=== PATIENT | female | born 1945 | race African-American/Black ===

== ENCOUNTER 2018-02-16 23:10 | Emergency (ER) | payer MEDICARE, MEDICAID | END 2018-02-16 23:22 | disposition left against medical advice (07) | LOC: ER 23:10 | DX: Z53.21 Procedure and treatment not carried out due to patient leaving prior to being seen by health care provider (principal) ==

== ENCOUNTER 2018-02-17 03:13 | Emergency (ER) | payer MEDICARE, MEDICAID ==
[~2018-02-17] VITALS: Ht 160 cm; Wt 67.0 kg
[2018-02-17 03:39] VITALS: BP 113/79
[2018-02-17] MEDS ORDERED: KETOROLAC 60MG/2ML VIAL IM ONE (08:00)
[2018-02-17] MEDS ORDERED: CEFTRIAXONE SODIUM 1 G/VIAL IM ONE (08:15)
[2018-02-17] MEDS ORDERED: LIDOCAINE HCL 1% 20ML VIAL (Pyxis) INJ INFIL ONE ×2 (08:15→12:45)
[2018-02-17] MEDS ORDERED: SULFAMETHOXAZOLE/TRIMETHOPRIM 800/160MG TABLET PO ONE (08:15)
[2018-02-17] MEDS ORDERED: LIDOCAINE HCL/PF 1% 10 MG/ML 5ML VIAL IJ ONE (12:00)
[2018-02-17] MEDS ORDERED: LIDOCAINE HCL/PF 1% 10 MG/ML 5ML VIAL IJ NR (12:45)
== END 2018-02-17 16:20 | disposition home or self-care (01) ==
LOC: ER 03:35
DX: L02.31 Cutaneous abscess of buttock (principal); H92.02 Otalgia, left ear; M54.5 Low back pain; Z59.0 Homelessness
CPT/HCPCS: 10060; 96372; 99284; J0696; J1885; J3490

== ENCOUNTER 2020-07-29 17:46 | Emergency (ER) | payer MEDICARE, MEDICAID ==
[~2020-07-29] VITALS: Ht 154.9 cm; Wt 55.0 kg
[2020-07-29] MEDS ORDERED: VANCOMYCIN 1 G PREMIX 200 ML IV ONE (18:45)
[2020-07-29] MEDS ORDERED: PIPERACILLIN/TAZ 3.375G PREMIX 50 ML IV ONE (18:45)
[2020-07-29 19:03] LABS: CLARITY URINE CLOUDY (CLEAR); COLOR URINE YELLOW (YELLOW); KETONES URINE TRACE (NEGATIVE); LEUKOCYTE ESTERASE URINE 2+ (NEGATIVE); NITRITE URINE NEGATIVE (NEGATIVE); OCCULT BLOOD URINE NEGATIVE (NEGATIVE); PROTEIN URINE NEGATIVE (NEGATIVE); SPECIFIC GRAVITY URINE 1.026 (1.005-1.030)
[2020-07-29 19:27] LABS: BASOPHILS % 0.6 % (0.0-2.0); EOSINOPHILS % 3.9 % (0.0-5.0); HEMATOCRIT. 29.2 % (36.0-48.0); HEMOGLOBIN. 9.3 g/dL (12.0-16.0); LYMPHOCYTES % 10.1 % (20.0-50.0); MEAN CORPUSCULAR HEMOGLOBIN 25.7 pg (28.0-32.0); MEAN PLATELET VOLUME 6.6 fl (7.4-10.4); MONOCYTES % 8.5 % (2.0-8.0); NEUTROPHILS % 76.9 % (40.0-76.0); PLATELET 420 x1000/uL (130-400); RED CELL DISTRIBUTION WIDTH 16.6 % (11.6-14.6)
[2020-07-29 19:37] LABS: CHLORIDE 102 mEq/L (98-107); PROTHROMBIN TIME 10.7 sec (9.6-11.0)
[2020-07-29] MEDS ORDERED: IOHEXOL-300 100 ML BOTTLE ONE (22:25)
[2020-07-30 03:00] VITALS: BP 98/63
== END 2020-07-30 04:46 | disposition left against medical advice (07) ==
LOC: ER 17:46 → EDBEDREQ 21:29 → EDBEDREQTM 21:29 → ER 07-30 04:46 → CANBEDREQ 07-30 08:53
DX: L03.317 Cellulitis of buttock (principal); N39.0 Urinary tract infection, site not specified; D64.9 Anemia, unspecified
CPT/HCPCS: 36415; 71045; 80053; 81003; 83605; 84145; 84484; 85025; 85610; 87040; 87086; 93005; 96365; 96366; 96367; 99285; J2543; J3370; Q9967

== ENCOUNTER 2022-08-25 18:10 | Inpatient (IN) | payer MEDICARE, MEDICAID ==
[~2022-08-25] VITALS: Ht 157.5 cm; Wt 47.6 kg
[~2022-08-25 18:10] MED LIST: BISA10SU62 RC; ESCI10TA PO; HYDR-4001 MT; MOM MT; TOPUD PO
[2022-08-25 22:31] LABS: CLARITY URINE CLEAR (CLEAR); COLOR URINE YELLOW (YELLOW); KETONES URINE NEGATIVE (NEGATIVE); LEUKOCYTE ESTERASE URINE 3+ (NEGATIVE); NITRITE URINE NEGATIVE (NEGATIVE); OCCULT BLOOD URINE NEGATIVE (NEGATIVE); PH URINE 6.5 (4.5-8.0); PROTEIN URINE NEGATIVE (NEGATIVE); SPECIFIC GRAVITY URINE 1.015 (1.005-1.030); UROBILINOGEN URINE 0.2 E.U./dL (0.2-1.0)
[2022-08-25] MEDS ORDERED: SODIUM CHLORIDE 0.9% 1,000 ML IV ONE (23:45)
[2022-08-26 00:17] LABS: BASOPHILS % 0.3 % (0.0-2.0); EOSINOPHILS % 3.3 % (0.0-5.0); HEMATOCRIT. 30.2 % (36.0-48.0); HEMOGLOBIN. 9.2 g/dL (12.0-16.0); LYMPHOCYTES % 10.5 % (20.0-50.0); MEAN CORPUSCULAR HEMOGLOBIN 23.7 pg (28.0-32.0); MEAN CORPUSCULAR VOLUME 77.7 fL (81.0-99.0); MEAN PLATELET VOLUME 6.9 fl (7.4-10.4); MONOCYTES % 9.7 % (2.0-8.0); NEUTROPHILS % 76.2 % (40.0-76.0); PLATELET 477 x1000/uL (130-400); RED BLOOD CELL COUNT 3.88 mill/uL (4.2-5.4); RED CELL DISTRIBUTION WIDTH 20.3 % (11.6-14.6)
[2022-08-26 00:25] LABS: CHLORIDE 104 mEq/L (98-107)
[2022-08-26] MEDS ORDERED: IOHEXOL-300 100 ML BOTTLE ONE (02:13)
[2022-08-26] MEDS ORDERED: KETOROLAC 15MG/ML VIAL IV PRN (02:45)
[2022-08-26] MEDS ORDERED: GUAIFENESIN 200MG/10ML SUGAR FREE UDC PO PRN (02:45)
[2022-08-26] MEDS ORDERED: MAGNESIUM/ALUMINUM HYDROXIDE/SIMETHICONE 30ML UDC PO PRN (02:45)
[2022-08-26] MEDS ORDERED: DOCUSATE SODIUM 100MG CAPSULE PO PRN (02:45)
[2022-08-26] MEDS ORDERED: IPRATROPIUM/ALBUTEROL 0.5-3(2.5)MG/3ML NEB HHN PRN (02:45)
[2022-08-26] MEDS ORDERED: TRAMADOL 50MG TABLET PO PRN (02:45)
[2022-08-26] MEDS ORDERED: CLONIDINE 0.1MG TABLET PO PRN (02:45)
[2022-08-26] MEDS ORDERED: ONDANSETRON HCL 4MG/2ML INJ IV PRN (02:45)
[2022-08-26] MEDS ORDERED: ACETAMINOPHEN 325MG TABLET PO PRN ×2 (02:45)
[2022-08-26] MEDS ORDERED: PIPERACILLIN/TAZ 3.375G PREMIX 50 ML IV NR (03:45)
[2022-08-26] MEDS ORDERED: VANCOMYCIN 1G PREMIX 200 ML IV NR (05:30)
[2022-08-26 08:00] VITALS: BP_SYST 122; BP_SYST 124; BP_DIAS 71; BP_DIAS 78
[2022-08-26] MEDS ORDERED: PIPERACILLIN/TAZOBACTAM 3.375 G in DEXTROSE 5% WATER 50 ML IV SCH ×5 (08:00→14:00)
[2022-08-26] MEDS ORDERED: VANCOMYCIN 1GM PMX (XELLIA) 200 ML IV NR (08:30)
[2022-08-26] MEDS: ENOXAPARIN 30MG/0.3ML SYR SUBCUT SCH (09:00)
[2022-08-26] MEDS: ASCORBIC ACID 500 MG TABLET PO SCH ×2 (09:48→20:38)
[2022-08-26] MEDS: ZINC SULFATE 220 MG ( 50 ) CAPSULE PO SCH (09:48)
[2022-08-26] MEDS: FAMOTIDINE 20MG TABLET PO SCH ×2 (09:48→20:38)
[2022-08-26] MEDS: PIPERACILLIN/TAZOBACTAM 3.375 G in DEXTROSE 5% WATER 50 ML IV SCH ×3 (11:22→22:05)
[2022-08-26 12:00] VITALS: BP 96/56
[2022-08-26 16:00] VITALS: BP 93/57
[2022-08-26 21:00] LABS: BASOPHILS % 0.6 % (0.0-2.0); EOSINOPHILS % 4.1 % (0.0-5.0); HEMATOCRIT. 30.9 % (36.0-48.0); HEMOGLOBIN. 9.5 g/dL (12.0-16.0); LYMPHOCYTES % 7.2 % (20.0-50.0); MEAN CORPUSCULAR HEMOGLOBIN 23.8 pg (28.0-32.0); MEAN CORPUSCULAR VOLUME 77.8 fL (81.0-99.0); MEAN PLATELET VOLUME 7.3 fl (7.4-10.4); MONOCYTES % 8.9 % (2.0-8.0); NEUTROPHILS % 79.2 % (40.0-76.0); PLATELET 490 x1000/uL (130-400); RED BLOOD CELL COUNT 3.98 mill/uL (4.2-5.4); RED CELL DISTRIBUTION WIDTH 20.3 % (11.6-14.6)
[2022-08-26 21:03] LABS: D-DIMER 0.7 mg/L FEU (<0.50); INR 1.2; PROTHROMBIN TIME 12.4 sec (9.6-11.0)
[2022-08-26 21:16] LABS: CHLORIDE 102 mEq/L (98-107)
[2022-08-26 21:47] LABS: TOTAL IRON BINDING CAPACITY 236 ug/dL (250-450)
[2022-08-27 04:00] VITALS: BP 103/56
[2022-08-27] MEDS ORDERED: VANCOMYCIN 750MG PMX (XELLIA) 150 ML IV SCH (06:00)
[2022-08-27] MEDS ORDERED: VANCOMYCIN 1GM PMX (XELLIA) 200 ML IV SCH (06:00)
[2022-08-27] MEDS: PIPERACILLIN/TAZOBACTAM 3.375 G in DEXTROSE 5% WATER 50 ML IV SCH ×2 (06:17→14:00)
[2022-08-27 08:00] VITALS: BP 122/65
[2022-08-27] MEDS: ZINC SULFATE 220 MG ( 50 ) CAPSULE PO SCH (10:17)
[2022-08-27] MEDS: ASCORBIC ACID 500 MG TABLET PO SCH ×2 (10:17→20:48)
[2022-08-27] MEDS: FAMOTIDINE 20MG TABLET PO SCH ×2 (10:17→20:48)
[2022-08-27] MEDS: ENOXAPARIN 30MG/0.3ML SYR SUBCUT SCH (10:26)
[2022-08-27 12:00] VITALS: BP 107/49
[2022-08-27] MEDS ORDERED: MAGNESIUM 1 G PREMIX 100 ML IV NR (12:00)
[2022-08-27 16:00] VITALS: BP 118/60
[2022-08-27 19:24] VITALS: BP 118/60
[2022-08-27 20:00] VITALS: BP 102/56
== END 2022-08-27 22:04 | DRG 606 ==
LOC: ER 18:10 → 6EST 08-26 01:58 → EDBEDREQTM 08-26 02:07 → EDBEDREQ 08-26 02:07 → ENRESERV 08-26 03:39
PROVIDERS: ADMIT Hospitalist; ATTEND Hospitalist
DX: L73.2 Hidradenitis suppurativa (principal); E43 Unspecified severe protein-calorie malnutrition; N39.0 Urinary tract infection, site not specified; Z68.1 Body mass index [BMI] 19.9 or less, adult; D75.838 Other thrombocytosis; D63.8 Anemia in other chronic diseases classified elsewhere; D50.9 Iron deficiency anemia, unspecified; F32.A Depression, unspecified; D75.839 Thrombocytosis, unspecified; E83.42 Hypomagnesemia; Z86.718 Personal history of other venous thrombosis and embolism; Z79.899 Other long term (current) drug therapy
CPT/HCPCS: 36415; 71260; 74177; 80053; 81003; 83540; 83550; 83735; 85025; 85379; 99285; J1650; J2543; J3370; J3475; J7030; J7060; Q9967